=== PATIENT | female | born 1990 | race African-American/Black ===

== ENCOUNTER 2016-11-10 17:43 | Emergency (ER) | payer MEDICAID ==
[~2016-11-10] VITALS: Ht 149.9 cm; Wt 72.6 kg
[2016-11-10 19:15] LABS: Albumin 3.9 g/dL (3.4-5.0); Calcium 8.7 mg/dL (8.5-10.1); Potassium 3.5 mmol/L (3.5-5.1)
[2016-11-10 19:17] LABS: Bilirubin, Total 0.3 mg/dL (0.2-1.0); Total Protein 7.7 g/dL (6.4-8.2)
[2016-11-10 19:20] LABS: Basophils # (auto) 0 uL; Basophils % (auto) 0.4 % (0.0-2.0); DEFINITIVE VIEW TRANSMISSION; Eosinophils # (auto) 0.1 uL; Eosinophils % (auto) 2.3 % (0.0-7.0); Hematocrit 40.9 % (36.0-46.0); Hemoglobin 13.2 g/dL (12.2-16.2); Lymphocytes # (auto) 2.4 uL; Lymphocytes % (auto) 45.7 % (10.0-50.0); Mean Corpuscular Hemoglobin 24.1 pg (28.0-32.0); Mean Corpuscular Hgb Conc. 32.2 g/dL (32.0-36.0); Mean Corpuscular Volume 74.9 fL (80.0-100.0); Mean Platelet Volume 11.9 fL (7.4-10.4); Monocytes # (auto) 0.3 uL; Monocytes % (auto) 6.3 % (0.0-12.0); Neutrophils # (auto) 2.4 uL; Neutrophils % (auto) 45.3 % (37.0-80.0); Platelet Count (auto) 204 10^3/uL (140-450); SUSPECT VIEW TRANSMISSION; White Blood Cell 5.2 10^3/uL (4.4-10.8)
[2016-11-10 19:53] LABS: Giant Platelets Few; Large Platelets FEW; Ovalocytes FEW; Platelet Estimate Adequa
[2016-11-10] MEDS ORDERED: ONDANSETRON HCL 4 MG/2 ML VIAL IV ONE (21:00)
[2016-11-10] MEDS ORDERED: SODIUM CHLORIDE 0.9% 1,000 ML IV ONE (21:15)
[2016-11-10 21:33] LABS: Albumin 3.8 g/dL (3.4-5.0); BUN/Creatinine Ratio 11.1; Calcium 8.3 mg/dL (8.5-10.1); Potassium 3.8 mmol/L (3.5-5.1)
[2016-11-10 21:36] LABS: Bilirubin, Total 0.3 mg/dL (0.2-1.0); Total Protein 6.9 g/dL (6.4-8.2)
[2016-11-10 22:06] LABS: Urine Bilirubin Negative (Negative); Urine Blood Negative /uL (Negative); Urine Color Yellow (Yellow); Urine Glucose Normal (Normal); Urine Ketone Negative (Negative); Urine Mucus FEW (None Seen); Urine Nitrite Negative (Negative); Urine RBC 1 /hpf (0 - 4); Urine Squamous Epithelial Cell FEW /hpf (<5); Urine pH 6.5 (5.0-8.0)
[2016-11-10] MEDS ORDERED: HYDROmorphone HCL 2 MG/ML VL IV ONE (22:15)
[2016-11-11 00:35] VITALS: BP 122/86
== END 2016-11-11 00:25 | disposition home or self-care (01) ==
LOC: ER 17:43
DX: K52.9 Noninfective gastroenteritis and colitis, unspecified (principal); R59.1 Generalized enlarged lymph nodes; J45.909 Unspecified asthma, uncomplicated; F17.210 Nicotine dependence, cigarettes, uncomplicated; F12.10 Cannabis abuse, uncomplicated
CPT/HCPCS: 36415; 74176; 80053; 81001; 81025; 82150; 83690; 84702; 85025; 96361; 96374; 96375; 99285; J1170; J2405; J7030

== ENCOUNTER 2017-09-08 10:44 | Emergency (ER) | payer MEDICAID ==
[~2017-09-08] VITALS: Ht 149.9 cm; Wt 77.1 kg
[2017-09-08] MEDS ORDERED: ASPirin 325 MG TAB PO ONE (11:15)
[2017-09-08] MEDS ORDERED: ALBUTEROL SULF 2.5 MG/0.5ML(0.5%) NEB SOLN NEB ONE (11:15)
[2017-09-08 11:20] LABS: Urine Bacteria NONE SEEN /hpf (None Seen); Urine Blood TRACE /uL (Negative); Urine Mucus FEW (None Seen); Urine Specific Gravity 1.033 (1.001-1.035); Urine WBC 2 /hpf (0 - 5)
[2017-09-08 11:28] VITALS: BP 119/57
[2017-09-08 11:33] LABS: Basophils # (auto) 0.1 uL; Eosinophils # (auto) 0.1 uL; Hemoglobin 13.7 g/dL (12.2-16.2); Lymphocytes # (auto) 2.7 uL; Neutrophils # (auto) 1.1 uL; Nucleated Red Blood Cells % 0.1 %
[2017-09-08 11:34] LABS: Basophils % (auto) 1.3 % (0.0-2.0); Eosinophils % (auto) 1.8 % (0.0-7.0); Hematocrit 40.9 % (36.0-46.0); Mean Corpuscular Hemoglobin 25.9 pg (28.0-32.0); Mean Corpuscular Hgb Conc. 33.5 g/dL (32.0-36.0); Mean Corpuscular Volume 77.3 fL (80.0-100.0); Monocytes # (auto) 0.5 uL; Monocytes % (auto) 10.5 % (0.0-12.0); Platelet Count (auto) 178 10^3/uL (140-450); Red Blood Cells 5.29 10^6/uL (4.0-5.20); Red Cell Distribution Width 16.8 % (11.8-14.3); White Blood Cell 4.3 10^3/uL (4.4-10.8)
[2017-09-08 11:42] LABS: Lymphocytes % (auto) 61.4 % (10.0-50.0)
[2017-09-08 11:56] LABS: Albumin 4.1 g/dL (3.4-5.0); BUN/Creatinine Ratio 10.5; Bilirubin, Total 0.3 mg/dL (0.2-1.0); Calcium 8.7 mg/dL (8.5-10.1); Potassium 3.7 mmol/L (3.5-5.1); Total Protein 7.8 g/dL (6.4-8.2)
== END 2017-09-08 13:19 | disposition home or self-care (01) ==
LOC: ER 10:44
DX: F41.9 Anxiety disorder, unspecified (principal); J45.909 Unspecified asthma, uncomplicated
CPT/HCPCS: 36415; 71046; 80053; 81001; 81025; 84484; 85025; 93005; 94640

== ENCOUNTER 2018-07-31 15:25 | Emergency (ER) | payer SELFPAY ==
[~2018-07-31] VITALS: Ht 149.9 cm; Wt 54.4 kg
[2018-07-31 15:35] VITALS: BP 112/68
== END 2018-07-31 17:38 | disposition home or self-care (01) ==
LOC: ER 15:29
DX: N76.0 Acute vaginitis (principal); J45.909 Unspecified asthma, uncomplicated; F12.10 Cannabis abuse, uncomplicated; Z98.51 Tubal ligation status
CPT/HCPCS: 81002; 81025

== ENCOUNTER 2018-10-25 13:39 | Emergency (ER) | payer MEDICAID ==
[~2018-10-25] VITALS: Ht 149.9 cm; Wt 54.0 kg
[2018-10-25 15:17] LABS: Basophils # (auto) 0 uL; Basophils % (auto) 0.7 % (0.0-2.0); Eosinophils # (auto) 0 uL; Eosinophils % (auto) 0.7 % (0.0-7.0); Hematocrit 44.6 % (36.0-46.0); Hemoglobin 14.5 g/dL (12.2-16.2); Lymphocytes # (auto) 2.8 uL; Mean Corpuscular Hemoglobin 26.9 pg (28.0-32.0); Mean Corpuscular Hgb Conc. 32.5 g/dL (32.0-36.0); Mean Corpuscular Volume 82.6 fL (80.0-100.0); Monocytes # (auto) 0.3 uL; Monocytes % (auto) 5.7 % (0.0-12.0); Neutrophils # (auto) 1.9 uL; Neutrophils % (auto) 37.1 % (37.0-80.0); Nucleated Red Blood Cells % 0.3 %; Platelet Count (auto) 171 10^3/uL (140-450); Red Cell Distribution Width 15.3 % (11.8-14.3); White Blood Cell 5.1 10^3/uL (4.4-10.8)
[2018-10-25 15:18] LABS: Lymphocytes % (auto) 55.8 % (10.0-50.0)
[2018-10-25 15:31] LABS: INR 1.13 (0.9-1.15); Partial Thromboplastin Time 27.3 sec (23.78-33.04)
[2018-10-25 15:32] LABS: Albumin 4.3 g/dL (3.4-5.0); Calcium 9.4 mg/dL (8.5-10.1); Potassium 3.5 mmol/L (3.5-5.1)
[2018-10-25 15:34] LABS: BUN/Creatinine Ratio 11.8; Bilirubin, Total 0.6 mg/dL (0.2-1.0); Total Protein 7.9 g/dL (6.4-8.2)
[2018-10-25 17:00] VITALS: BP 118/67
== END 2018-10-25 17:09 | disposition home or self-care (01) ==
LOC: ER 13:39
DX: N93.9 Abnormal uterine and vaginal bleeding, unspecified (principal); J45.909 Unspecified asthma, uncomplicated; F12.90 Cannabis use, unspecified, uncomplicated; Z98.51 Tubal ligation status
CPT/HCPCS: 36415; 80053; 85025; 85610; 85730

== ENCOUNTER 2019-04-17 20:00 | Emergency (ER) | payer MEDICAID ==
[~2019-04-17] VITALS: Ht 157.5 cm; Wt 49.9 kg
[2019-04-18 00:02] LABS: Basophils # (auto) 0 uL; Eosinophils # (auto) 0.1 uL; Eosinophils % (auto) 0.9 % (0.0-7.0); Lymphocytes # (auto) 1.7 uL; Monocytes # (auto) 0.5 uL; Monocytes % (auto) 5.5 % (0.0-12.0); Nucleated Red Blood Cells % 0.1 %; Red Cell Distribution Width 14.6 % (11.8-14.3)
[2019-04-18 00:03] LABS: Basophils % (auto) 0.5 % (0.0-2.0); Hematocrit 39.8 % (36.0-46.0); Hemoglobin 13.3 g/dL (12.2-16.2); Lymphocytes % (auto) 21.1 % (10.0-50.0); Mean Corpuscular Hemoglobin 27.1 pg (28.0-32.0); Mean Corpuscular Hgb Conc. 33.4 g/dL (32.0-36.0); Platelet Count (auto) 143 10^3/uL (140-450); Red Blood Cells 4.91 10^6/uL (4.0-5.20); White Blood Cell 8.3 10^3/uL (4.4-10.8)
[2019-04-18] MEDS ORDERED: SODIUM CHLORIDE 0.9% 2,000 ML IV ONE (00:15)
[2019-04-18 00:30] LABS: Albumin 3.4 g/dL (3.4-5.0); BUN/Creatinine Ratio 9.7; Calcium 8.5 mg/dL (8.5-10.1); Potassium 4.2 mmol/L (3.5-5.1)
[2019-04-18 00:33] LABS: Bilirubin, Total 0.1 mg/dL (0.2-1.0); Total Protein 6.2 g/dL (6.4-8.2)
[2019-04-18 03:43] LABS: Urine Bacteria NONE SEEN /hpf (None Seen); Urine Blood Negative /uL (Negative); Urine Mucus FEW (None Seen); Urine Specific Gravity 1.023 (1.001-1.035); Urine WBC 4 /hpf (0 - 5)
[2019-04-18] MEDS ORDERED: LEVETIRACETAM INJ 1,000 MG in D5W 5% 100 ML IV ONE (04:00)
[2019-04-18 04:17] LABS: Alcohol, Urine 6.8 mg/dL (0-5); Amphetamine Screen, Urine NEGATIVE (NEGATIVE); Barbiturate Scree,Urine NEGATIVE (NEGATIVE); Benzodiazephine Screen, Urine NEGATIVE (NEGATIVE); Cannabinoid Screen, Urine POSITIVE (NEGATIVE); Cocaine Screen, Urine NEGATIVE (NEGATIVE); Opiate Scree,Urine NEGATIVE (NEGATIVE); Phencyclidine Screen, Urine NEGATIVE (NEGATIVE)
[2019-04-18 04:59] VITALS: BP 92/65
[2019-04-18] MEDS ORDERED: ONDANSETRON HCL 4 MG/2 ML VIAL IV ONE (05:15)
== END 2019-04-18 05:36 | disposition home or self-care (01) ==
LOC: EDBD 20:00 → ER 20:07
DX: R55 Syncope and collapse (principal); F21 Schizotypal disorder; J45.909 Unspecified asthma, uncomplicated; F12.10 Cannabis abuse, uncomplicated
CPT/HCPCS: 36415; 70450; 80053; 80307; 81001; 84484; 84702; 85025; 93005; 96361; 96374; 99284; J2405; J7030; J7060